=== PATIENT | male | born 1945 | race Caucasian/White ===

== ENCOUNTER 2017-03-19 03:24 | Inpatient (IN) | payer OTHER ==
[2017-03-19] VITALS (22 sets, daily range): BP systolic 84–126; BP diastolic 52–89
[~2017-03-19] VITALS: Ht 487.7 cm; Wt 160.3 kg
[2017-03-19 04:05] LABS: MEAN PLAT.VOLUME 9.5 uM^3 (9.0-12.4); PLATELET COUNT 324 K/uL (156-360)
[2017-03-19 04:11] LABS: INTER. NORMALIZED RATIO 1.2; PROTHROMBIN TIME 13.5 SEC (10.2-12.9)
[2017-03-19 04:13] LABS: HEMATOCRIT 47.6 % (38.0-50.0); MCH 30.7 PG (29.0-34.0); MCV 90.3 FL (86-99); RBC DIS.WIDTH-CV 14.6 % (11.8-14.6); RBC DIS.WIDTH-SD 48.7 % (39-53); RED BLOOD COUNT 5.27 M/uL (4.00-5.50); WHITE BLOOD COUNT 38.5 K/uL (4.1-10.2)
[2017-03-19 04:14] LABS: PTT 26.4 SEC (25-37)
[2017-03-19 04:22] LABS: CHLORIDE 96 mEq/L (99-109); POTASSIUM 3.7 mEq/L (3.7-5.4); SODIUM 138 mEq/L (136-147)
[2017-03-19 04:25] LABS: GLUCOSE 168 mg/dL (70-99)
[2017-03-19 04:26] LABS: ANION GAP 21 MEQ/L (2-14); TOTAL BILIRUBIN 0.7 mg/dL (0.0-1.0)
[2017-03-19 04:28] LABS: ALKALINE PHOSPHATASE 72 IU/L (3-129); GFR ESTIMATE (CALCULATED) 19 mL/min/
[2017-03-19 04:29] LABS: UREA NITROGEN (BUN) 32 mg/dL (9-23)
[2017-03-19 04:30] LABS: DIRECT BILIRUBIN 0.4 mg/dL (0.0-0.3)
[2017-03-19 04:32] LABS: LIPASE 2 U/L (1.0-51.0)
[2017-03-19 04:33] LABS: TROP-I INTERPRETATION NEGATIVE; TROPONIN-I 0.02 ng/mL (0.0-0.30)
[2017-03-19 04:48] LABS: ABS NEUTROPHIL COUNT 35.8; ANISOCYTOSIS 1+; BAND NEUTROPHILS 17.3 % (0-8.0); BURR CELLS 1+; EOSINOPHIL ABS CT 0; HEMATOLOGY COMMENT 1 SN; INSTRUMENT ABS NEUTROPHIL CT 33.2 K/uL; LYMPHOCYTES 1.4 % (15.0-45.0); METAMYELOCYTES 0.5 %; PLAT.SUFFICIENCY ADEQUATE; POLYCHROMASIA 1+; SEG.NEUTROPHILS 75.7 % (46.0-76.0)
[2017-03-19] MEDS ORDERED: TRIAMTERENE-HC1 EACH PO (06:53)
[2017-03-19] MEDS ORDERED: LISINOPRIL20 MG PO (06:55)
[2017-03-19] MEDS ORDERED: ALLOPURINOL300 MG PO (06:55)
[2017-03-19] MEDS ORDERED: TRAMADOL HCL E100 M1 PO (06:55)
[2017-03-19] MEDS ORDERED: CRESTOR10 MG PO (06:56)
[2017-03-19] MEDS ORDERED: ALEVE220 MG PO (06:57)
[2017-03-19] MEDS ORDERED: GLUCOSAMINE1000 MG PO (06:58)
[2017-03-19] MEDS ORDERED: ASPIR 8181 M1 PO (06:58)
[2017-03-19] MEDS ORDERED: CHONDROITIN SU250 MG PO (06:59)
[2017-03-19 07:11] LABS: C DIFF TOXIN POSITIVE (NEGATIVE); PROBE CHECK PASS
[2017-03-19] MEDS ORDERED: LEVAQUIN250 MG PO (07:30)
[2017-03-19] MEDS ORDERED: LEVAQUIN750 MG PO (07:32)
[2017-03-19 08:23] LABS: METH RESISTANT S AUREUS PCR NEGATIVE (NEGATIVE); PROBE CHECK PASS; SPECIMEN PROCESSING CONTROL PASS
[2017-03-19] MEDS ORDERED: PROVENTIL HFA6.7 GM IH (13:36)
[2017-03-19] MEDS ORDERED: LOTRIMIN AF24 GM TP (13:38)
[2017-03-20] VITALS (24 sets, daily range): BP systolic 67–115; BP diastolic 37–85
[2017-03-20 05:24] LABS: HEMATOCRIT 46.1 % (38.0-50.0); MCH 31.1 PG (29.0-34.0); MCHC 34.3 G/DL (30.0-36.0); MCV 90.7 FL (86-99); MEAN PLAT.VOLUME 9.6 uM^3 (9.0-12.4); PLATELET COUNT 331 K/uL (156-360); RBC DIS.WIDTH-CV 14.9 % (11.8-14.6); RBC DIS.WIDTH-SD 49.5 % (39-53); RED BLOOD COUNT 5.08 M/uL (4.00-5.50)
[2017-03-20 05:39] LABS: WHITE BLOOD COUNT 40.9 K/uL (4.1-10.2)
[2017-03-20 05:40] LABS: ANION GAP 13 MEQ/L (2-14); CHLORIDE 102 MEQ/L (99-109); GLUCOSE 157 mg/dL (70-99); MAGNESIUM 1.8 mg/dl (1.3-2.7); POTASSIUM 4.2 MEQ/L (3.7-5.4); SAMPLE HEMOLYSIS CHECK 0; SAMPLE ICTERIC CHECK 0; SAMPLE LIPEMIA CHECK 0; SODIUM 137 MEQ/L (136-147); UREA NITROGEN (BUN) 45 mg/dL (9-23)
[2017-03-20 05:42] LABS: GFR ESTIMATE (CALCULATED) 16 mL/min/
[2017-03-20 05:54] LABS: ABS NEUTROPHIL COUNT 36.4; ANISOCYTOSIS 1+; ATYPICAL LYMPHOCYTE 1.3 %; BAND NEUTROPHILS 4.4 % (0-8.0); BURR CELLS 3+; EOSINOPHIL ABS CT 0; INSTRUMENT ABS NEUTROPHIL CT 34.3 K/uL; LYMPHOCYTES 3.5 % (15.0-45.0); METAMYELOCYTES 1.3 %; MYELOCYTES 0.4 %; PLAT.SUFFICIENCY ADEQUATE; SEG.NEUTROPHILS 84.7 % (46.0-76.0); TOX.VACUOLIZATION 1+; TOXIC GRANULATION 3+
[2017-03-20 09:26] LABS: UR CREATININE CONCENTRATION 344.8 MG/DL
[2017-03-21] VITALS (20 sets, daily range): BP systolic 79–135; BP diastolic 40–79
[2017-03-21 05:19] LABS: MEAN PLAT.VOLUME 9.5 uM^3 (9.0-12.4); PLATELET COUNT 325 K/uL (156-360)
[2017-03-21 05:39] LABS: HEMATOCRIT 42.6 % (38.0-50.0); MCH 30.3 PG (29.0-34.0); MCHC 33.8 G/DL (30.0-36.0); MCV 89.7 FL (86-99); RBC DIS.WIDTH-CV 14.9 % (11.8-14.6); RBC DIS.WIDTH-SD 49.4 % (39-53); RED BLOOD COUNT 4.75 M/uL (4.00-5.50); WHITE BLOOD COUNT 34.3 K/uL (4.1-10.2)
[2017-03-21 05:44] LABS: ALKALINE PHOSPHATASE 66 IU/L (3-129); ANION GAP 9 MEQ/L (2-14); CHLORIDE 104 MEQ/L (99-109); GFR ESTIMATE (CALCULATED) 13 mL/min/; GLUCOSE 133 mg/dL (70-99); POTASSIUM 4.4 MEQ/L (3.7-5.4); SAMPLE HEMOLYSIS CHECK 0; SAMPLE ICTERIC CHECK 0; SAMPLE LIPEMIA CHECK 0; SODIUM 137 MEQ/L (136-147); TOTAL BILIRUBIN 0.4 MG/DL (0.0-1.0); UREA NITROGEN (BUN) 54 mg/dL (9-23)
[2017-03-21 10:58] LABS: MAGNESIUM 1.7 mg/dl (1.3-2.7)
[2017-03-22] VITALS (21 sets, daily range): BP systolic 84–140; BP diastolic 52–86
[2017-03-22 05:50] LABS: HEMATOCRIT 41.4 % (38.0-50.0); MCH 30.6 PG (29.0-34.0); MCHC 34.3 G/DL (30.0-36.0); MCV 89.2 FL (86-99); MEAN PLAT.VOLUME 9.8 uM^3 (9.0-12.4); NRBC (%) 0.1 /100 WBC (0-0); PLATELET COUNT 294 K/uL (156-360); RBC DIS.WIDTH-CV 15.3 % (11.8-14.6); RBC DIS.WIDTH-SD 50.6 % (39-53); RED BLOOD COUNT 4.64 M/uL (4.00-5.50); WHITE BLOOD COUNT 29.8 K/uL (4.1-10.2)
[2017-03-22 06:15] LABS: ALKALINE PHOSPHATASE 93 IU/L (3-129); ANION GAP 15 MEQ/L (2-14); CHLORIDE 103 MEQ/L (99-109); GLUCOSE 115 mg/dL (70-99); POTASSIUM 4.1 MEQ/L (3.7-5.4); SAMPLE HEMOLYSIS CHECK 0; SAMPLE ICTERIC CHECK 0; SAMPLE LIPEMIA CHECK 0; SODIUM 139 MEQ/L (136-147); UREA NITROGEN (BUN) 60 mg/dL (9-23)
[2017-03-22 06:17] LABS: ABS NEUTROPHIL COUNT 25.1; ANISOCYTOSIS 1+; ATYPICAL LYMPHOCYTE 1.4 %; BURR CELLS 2+; EOSINOPHIL ABS CT 0; INSTRUMENT ABS NEUTROPHIL CT 22.6 K/uL; LYMPHOCYTES 4.5 % (15.0-45.0); MACROCYTES 1+; METAMYELOCYTES 3.2 %; MYELOCYTES 1.4 %; PLAT.SUFFICIENCY ADEQUATE; POIKILOCYTOSIS 2+; SEG.NEUTROPHILS 79.1 % (46.0-76.0); SMUDGE CELLS 2.3; SPHEROCYTES 2+
[2017-03-22 06:18] LABS: GFR ESTIMATE (CALCULATED) 16 mL/min/; TOTAL BILIRUBIN 0.5 MG/DL (0.0-1.0)
[2017-03-22 06:33] LABS: ANION GAP 13 MEQ/L (2-14); CHLORIDE 102 MEQ/L (99-109); GFR ESTIMATE (CALCULATED) 17 mL/min/; GLUCOSE 111 mg/dL (70-99); POTASSIUM 4.1 MEQ/L (3.7-5.4); SAMPLE HEMOLYSIS CHECK 0; SAMPLE ICTERIC CHECK 0; SAMPLE LIPEMIA CHECK 0; SODIUM 136 MEQ/L (136-147); UREA NITROGEN (BUN) 59 mg/dL (9-23)
[2017-03-23] VITALS (19 sets, daily range): BP systolic 99–139; BP diastolic 53–82
[2017-03-23 05:53] LABS: HEMATOCRIT 42.1 % (38.0-50.0); MCH 30.2 PG (29.0-34.0); MEAN PLAT.VOLUME 9.7 uM^3 (9.0-12.4); NRBC (%) 0.2 /100 WBC (0-0); PLATELET COUNT 322 K/uL (156-360); RBC DIS.WIDTH-CV 15.5 % (11.8-14.6); RBC DIS.WIDTH-SD 50.6 % (39-53); RED BLOOD COUNT 4.73 M/uL (4.00-5.50)
[2017-03-23 05:55] LABS: WHITE BLOOD COUNT 32.7 K/uL (4.1-10.2)
[2017-03-23 06:11] LABS: ANION GAP 10 MEQ/L (2-14); CHLORIDE 102 MEQ/L (99-109); GLUCOSE 110 mg/dL (70-99); SAMPLE HEMOLYSIS CHECK 0; SAMPLE ICTERIC CHECK 0; SAMPLE LIPEMIA CHECK 0; SODIUM 134 MEQ/L (136-147); UREA NITROGEN (BUN) 57 mg/dL (9-23)
[2017-03-23 06:17] LABS: GFR ESTIMATE (CALCULATED) 24 mL/min/
[2017-03-23 06:51] LABS: ABS NEUTROPHIL COUNT 28.1; ANISOCYTOSIS 1+; ATYPICAL LYMPHOCYTE 0.4 %; BAND NEUTROPHILS 6.6 % (0-8.0); BURR CELLS 1+; EOSINOPHIL ABS CT 0.2; EOSINOPHILS 0.5 % (0-5.0); INSTRUMENT ABS NEUTROPHIL CT 25.4 K/uL; LYMPHOCYTES 3.5 % (15.0-45.0); MACROCYTES 1+; METAMYELOCYTES 1.3 %; MYELOCYTES 0.4 %; NUCLEATED RBC'S 0.4; PLAT.SUFFICIENCY ADEQUATE; POIKILOCYTOSIS 1+; SEG.NEUTROPHILS 79.4 % (46.0-76.0); SMUDGE CELLS 5.3
[2017-03-23 12:49] LABS: TYPE OF FLUID PARACENTESIS
[2017-03-23 13:38] LABS: BODY FLUID PROTEIN < 3.0 G/DL
[2017-03-23 13:40] LABS: BODY FLUID RBC'S 1000 /MM^3 (0-100); BODY FLUID WBC'S 12275 /MM^3 (0-500); WBC AREA COUNTED 0.4; WHITE CELL RAW COUNT 491
[2017-03-23 14:03] LABS: BODY FLUID EOSINOPHILS 0 % (0-25); MONONUCLEAR WBC'S 0 %; POLY RAW COUNT 100; POLYNUCLEAR WBC'S 100 % (0-25)
[2017-03-24] VITALS (14 sets, daily range): BP systolic 103–135; BP diastolic 58–82
[2017-03-24 05:00] LABS: MEAN PLAT.VOLUME 9.4 uM^3 (9.0-12.4); PLATELET COUNT 273 K/uL (156-360)
[2017-03-24 05:11] LABS: POTASSIUM 3.6 mEq/L (3.7-5.4); SODIUM 135 mEq/L (136-147)
[2017-03-24 05:13] LABS: GLUCOSE 118 mg/dL (70-99); HEMATOCRIT 39.8 % (38.0-50.0); MCH 30.9 PG (29.0-34.0); MCHC 34.9 G/DL (30.0-36.0); MCV 88.4 FL (86-99); NRBC (%) 0.2 /100 WBC (0-0); RBC DIS.WIDTH-CV 15.3 % (11.8-14.6); RBC DIS.WIDTH-SD 49.5 % (39-53)
[2017-03-24 05:14] LABS: ANION GAP 8 MEQ/L (2-14); CHLORIDE 106 mEq/L (99-109); WHITE BLOOD COUNT 30.1 K/uL (4.1-10.2)
[2017-03-24 05:16] LABS: GFR ESTIMATE (CALCULATED) 38 mL/min/
[2017-03-24 05:17] LABS: CHLORIDE 105 mEq/L (99-109); POTASSIUM 3.8 mEq/L (3.7-5.4); SODIUM 137 mEq/L (136-147); UREA NITROGEN (BUN) 51 mg/dL (9-23)
[2017-03-24 05:19] LABS: GLUCOSE 115 mg/dL (70-99)
[2017-03-24 05:20] LABS: ANION GAP 11 MEQ/L (2-14)
[2017-03-24 05:21] LABS: TOTAL BILIRUBIN 0.4 mg/dL (0.0-1.0)
[2017-03-24 05:22] LABS: ALKALINE PHOSPHATASE 79 IU/L (3-129)
[2017-03-24 05:23] LABS: GFR ESTIMATE (CALCULATED) 38 mL/min/
[2017-03-24 05:24] LABS: UREA NITROGEN (BUN) 51 mg/dL (9-23)
[2017-03-25 00:23] VITALS: BP 130/70
[2017-03-25 06:52] LABS: HEMATOCRIT 42.9 % (38.0-50.0); MCH 30.1 PG (29.0-34.0); MCHC 33.6 G/DL (30.0-36.0); MCV 89.6 FL (86-99); MEAN PLAT.VOLUME 9.8 uM^3 (9.0-12.4); NRBC (%) 0.1 /100 WBC (0-0); PLATELET COUNT 323 K/uL (156-360); RBC DIS.WIDTH-CV 15.8 % (11.8-14.6); RBC DIS.WIDTH-SD 51.7 % (39-53); RED BLOOD COUNT 4.79 M/uL (4.00-5.50); WHITE BLOOD COUNT 29.4 K/uL (4.1-10.2)
[2017-03-25 07:18] LABS: ANION GAP 10 MEQ/L (2-14); ANION GAP 11 MEQ/L (2-14); CHLORIDE 104 MEQ/L (99-109); GFR ESTIMATE (CALCULATED) 49 mL/min/; GFR ESTIMATE (CALCULATED) 53 mL/min/; GLUCOSE 116 mg/dL (70-99); GLUCOSE 122 mg/dL (70-99); POTASSIUM 3.7 MEQ/L (3.7-5.4); POTASSIUM 3.8 MEQ/L (3.7-5.4); SAMPLE HEMOLYSIS CHECK 0; SAMPLE ICTERIC CHECK 0; SAMPLE LIPEMIA CHECK 0; SODIUM 138 MEQ/L (136-147); SODIUM 140 MEQ/L (136-147); UREA NITROGEN (BUN) 41 mg/dL (9-23)
[2017-03-25 08:29] VITALS: BP 98/64
[2017-03-25 11:44] VITALS: BP 122/62
[2017-03-25 15:30] VITALS: BP 102/68
[2017-03-25 20:35] VITALS: BP 104/66
[2017-03-26 00:12] VITALS: BP 102/68
[2017-03-26 04:45] VITALS: BP 120/68
[2017-03-26 08:00] VITALS: BP 136/83
[2017-03-26 08:50] LABS: HEMATOCRIT 43.3 % (38.0-50.0); MCH 31.4 PG (29.0-34.0); MCHC 34.9 G/DL (30.0-36.0); MEAN PLAT.VOLUME 9.7 uM^3 (9.0-12.4); PLATELET COUNT 348 K/uL (156-360); RBC DIS.WIDTH-CV 16.1 % (11.8-14.6); RBC DIS.WIDTH-SD 52.3 % (39-53); RED BLOOD COUNT 4.81 M/uL (4.00-5.50); WHITE BLOOD COUNT 28.8 K/uL (4.1-10.2)
[2017-03-26 11:46] VITALS: BP 145/62
[2017-03-26 12:00] LABS: CREATININE 3.5 mg/dL (0.6-1.3); POTASSIUM 3.7 mEq/L (3.7-5.4)
[2017-03-26 12:57] LABS: INTER. NORMALIZED RATIO 1.1; PROTHROMBIN TIME 12.4 SEC (10.2-12.9)
[2017-03-26 13:00] LABS: PTT 25.8 SEC (25-37)
[2017-03-26 13:20] LABS: ANION GAP 7 MEQ/L (2-14); CHLORIDE 103 MEQ/L (99-109); GFR ESTIMATE (CALCULATED) 58 mL/min/; GLUCOSE 113 mg/dL (70-99); SAMPLE HEMOLYSIS CHECK 0; SAMPLE ICTERIC CHECK 0; SAMPLE LIPEMIA CHECK 0; SODIUM 139 MEQ/L (136-147); UREA NITROGEN (BUN) 36 mg/dL (9-23)
[2017-03-26 13:26] LABS: POTASSIUM 4.8 MEQ/L (3.7-5.4)
[2017-03-26 16:00] VITALS: BP 148/82
[2017-03-26 20:10] VITALS: BP 119/70
[2017-03-27 00:16] VITALS: BP 133/61
[2017-03-27 07:45] LABS: MEAN PLAT.VOLUME 9.4 uM^3 (9.0-12.4); PLATELET COUNT 386 K/uL (156-360)
[2017-03-27 07:50] LABS: HEMATOCRIT 45.9 % (38.0-50.0); MCH 29.9 PG (29.0-34.0); MCHC 33.6 G/DL (30.0-36.0); MCV 89.1 FL (86-99); RBC DIS.WIDTH-CV 15.9 % (11.8-14.6); RBC DIS.WIDTH-SD 51.8 % (39-53); RED BLOOD COUNT 5.15 M/uL (4.00-5.50)
[2017-03-27 07:54] LABS: ANION GAP 12 MEQ/L (2-14); CHLORIDE 102 MEQ/L (99-109); GFR ESTIMATE (CALCULATED) 53 mL/min/; GLUCOSE 119 mg/dL (70-99); POTASSIUM 4.7 MEQ/L (3.7-5.4); SAMPLE HEMOLYSIS CHECK 0; SAMPLE ICTERIC CHECK 0; SAMPLE LIPEMIA CHECK 0; SODIUM 138 MEQ/L (136-147); UREA NITROGEN (BUN) 36 mg/dL (9-23)
[2017-03-27 08:09] LABS: WHITE BLOOD COUNT 31.9 K/uL (4.1-10.2)
[2017-03-27 08:19] VITALS: BP 118/72
[2017-03-27 11:51] VITALS: BP 121/71
[2017-03-27 16:48] VITALS: BP 128/72
[2017-03-27 20:16] VITALS: BP 121/59
[2017-03-28 00:02] VITALS: BP 107/67
[2017-03-28 08:36] LABS: BASOPHIL COUNT 0.1 K/uL (0-0.1); EOSINOPHIL (%) 0.2 % (0-5); EOSINOPHIL COUNT 0.1 K/uL (0-0.3); HEMATOCRIT 46.2 % (38.0-50.0); IMMATURE GRANULOCYTE (%) 2.7 % (0.0-0.7); IMMATURE GRANULOCYTE COUNT 0.6 K/uL; INSTRUMENT ABS NEUTROPHIL CT 17.7 K/uL; LYMPHOCYTE COUNT 1.7 K/uL (1.0-2.8); MCH 29.8 PG (29.0-34.0); MCHC 33.1 G/DL (30.0-36.0); MCV 90.1 FL (86-99); MEAN PLAT.VOLUME 9.1 uM^3 (9.0-12.4); MONOCYTE (%) 6.1 % (3-12); MONOCYTE COUNT 1.3 K/uL (0-0.8); NEUTROPHIL (%) 82.3 % (45-76); NEUTROPHIL COUNT 17.7 K/uL (1.8-6.4); PLATELET COUNT 368 K/uL (156-360); RBC DIS.WIDTH-CV 16.1 % (11.8-14.6); RBC DIS.WIDTH-SD 52.2 % (39-53); RED BLOOD COUNT 5.13 M/uL (4.00-5.50); WHITE BLOOD COUNT 21.5 K/uL (4.1-10.2)
[2017-03-28 08:54] VITALS: BP 122/70
[2017-03-28 09:08] LABS: ANION GAP 8 MEQ/L (2-14); CHLORIDE 101 MEQ/L (99-109); GFR ESTIMATE (CALCULATED) 53 mL/min/; GLUCOSE 122 mg/dL (70-99); POTASSIUM 4.6 MEQ/L (3.7-5.4); SAMPLE HEMOLYSIS CHECK 0; SAMPLE ICTERIC CHECK 0; SAMPLE LIPEMIA CHECK 0; SODIUM 137 MEQ/L (136-147); UREA NITROGEN (BUN) 32 mg/dL (9-23)
[2017-03-28 16:50] VITALS: BP 118/80
[2017-03-28 19:59] VITALS: BP 120/78
[2017-03-29 00:04] VITALS: BP 131/61
[2017-03-29 07:06] LABS: HEMATOCRIT 46.6 % (38.0-50.0); MCH 31.3 PG (29.0-34.0); MCHC 34.5 G/DL (30.0-36.0); MCV 90.7 FL (86-99); MEAN PLAT.VOLUME 9.5 uM^3 (9.0-12.4); PLATELET COUNT 372 K/uL (156-360); RBC DIS.WIDTH-CV 16.3 % (11.8-14.6); RBC DIS.WIDTH-SD 53.5 % (39-53); RED BLOOD COUNT 5.14 M/uL (4.00-5.50); WHITE BLOOD COUNT 19.6 K/uL (4.1-10.2)
[2017-03-29 07:30] LABS: ANION GAP 10 MEQ/L (2-14); CHLORIDE 103 MEQ/L (99-109); GFR ESTIMATE (CALCULATED) 53 mL/min/; GLUCOSE 128 mg/dL (70-99); POTASSIUM 5.4 MEQ/L (3.7-5.4); SAMPLE HEMOLYSIS CHECK 2; SAMPLE ICTERIC CHECK 0; SAMPLE LIPEMIA CHECK 0; SODIUM 136 MEQ/L (136-147); UREA NITROGEN (BUN) 32 mg/dL (9-23)
[2017-03-29 08:38] VITALS: BP 123/63
[2017-03-29 12:30] VITALS: BP 128/66
[2017-03-29 15:55] VITALS: BP 142/53
[2017-03-29 19:26] VITALS: BP 132/65
[2017-03-29 23:31] VITALS: BP 122/58
[2017-03-30 03:43] VITALS: BP 117/54
[2017-03-30 07:26] LABS: HEMATOCRIT 42.4 % (38.0-50.0); MCH 30.8 PG (29.0-34.0); MCHC 34.2 G/DL (30.0-36.0); MEAN PLAT.VOLUME 9.5 uM^3 (9.0-12.4); PLATELET COUNT 378 K/uL (156-360); RBC DIS.WIDTH-CV 16.2 % (11.8-14.6); RBC DIS.WIDTH-SD 52.9 % (39-53); RED BLOOD COUNT 4.71 M/uL (4.00-5.50); WHITE BLOOD COUNT 13.4 K/uL (4.1-10.2)
[2017-03-30 07:35] LABS: ANION GAP 9 MEQ/L (2-14); CHLORIDE 106 MEQ/L (99-109); GFR ESTIMATE (CALCULATED) 53 mL/min/; GLUCOSE 103 mg/dL (70-99); POTASSIUM 4.4 MEQ/L (3.7-5.4); SAMPLE HEMOLYSIS CHECK 0; SAMPLE ICTERIC CHECK 0; SAMPLE LIPEMIA CHECK 0; SODIUM 139 MEQ/L (136-147); UREA NITROGEN (BUN) 33 mg/dL (9-23)
[2017-03-30 08:28] VITALS: BP 114/78
[2017-03-30 11:49] VITALS: BP 122/60
[2017-03-30 16:50] VITALS: BP 119/70
[2017-03-30 19:26] VITALS: BP 115/56
[2017-03-30 23:52] VITALS: BP 119/74
[2017-03-31 03:02] VITALS: BP 110/57
[2017-03-31 08:01] VITALS: BP 108/56
[2017-03-31 09:59] LABS: HEMATOCRIT 43.7 % (38.0-50.0); MCH 30.4 PG (29.0-34.0); MCHC 33.4 G/DL (30.0-36.0); MEAN PLAT.VOLUME 8.8 uM^3 (9.0-12.4); PLATELET COUNT 403 K/uL (156-360); RBC DIS.WIDTH-CV 16.1 % (11.8-14.6); RBC DIS.WIDTH-SD 53.4 % (39-53); WHITE BLOOD COUNT 10.9 K/uL (4.1-10.2)
[2017-03-31 10:23] LABS: ANION GAP 8 MEQ/L (2-14); CHLORIDE 107 MEQ/L (99-109); GFR ESTIMATE (CALCULATED) 58 mL/min/; GLUCOSE 130 mg/dL (70-99); MAGNESIUM 1.9 mg/dl (1.3-2.7); POTASSIUM 4.7 MEQ/L (3.7-5.4); SAMPLE HEMOLYSIS CHECK 0; SAMPLE ICTERIC CHECK 0; SAMPLE LIPEMIA CHECK 0; SODIUM 139 MEQ/L (136-147); UREA NITROGEN (BUN) 29 mg/dL (9-23)
[2017-03-31 11:56] VITALS: BP 112/60
[2017-03-31 16:13] VITALS: BP 114/60
[2017-03-31 19:35] VITALS: BP 116/57
[2017-03-31 23:21] VITALS: BP 113/53
[2017-04-01 04:15] VITALS: BP 123/58
[2017-04-01 07:23] LABS: ANION GAP 6 MEQ/L (2-14); CHLORIDE 106 MEQ/L (99-109); GFR ESTIMATE (CALCULATED) > 59 mL/min/; GLUCOSE 108 mg/dL (70-99); SAMPLE HEMOLYSIS CHECK 0; SAMPLE ICTERIC CHECK 0; SAMPLE LIPEMIA CHECK 0; SODIUM 137 MEQ/L (136-147); UREA NITROGEN (BUN) 25 mg/dL (9-23)
[2017-04-01 09:57] VITALS: BP 102/49
[2017-04-01 11:36] VITALS: BP 115/60
[2017-04-01 19:29] VITALS: BP 106/57
[2017-04-01 23:24] VITALS: BP 118/60
[2017-04-02 04:31] VITALS: BP 122/64
[2017-04-02 06:38] LABS: EOSINOPHIL (%) 0.2 % (0-5); HEMATOCRIT 43.4 % (38.0-50.0); IMMATURE GRANULOCYTE (%) 0.6 % (0.0-0.7); IMMATURE GRANULOCYTE COUNT 0.1 K/uL; LYMPHOCYTE COUNT 1.3 K/uL (1.0-2.8); MCH 31.2 PG (29.0-34.0); MCHC 34.1 G/DL (30.0-36.0); MCV 91.4 FL (86-99); MEAN PLAT.VOLUME 8.9 uM^3 (9.0-12.4); MONOCYTE (%) 10.3 % (3-12); MONOCYTE COUNT 0.9 K/uL (0-0.8); NEUTROPHIL (%) 72.2 % (45-76); PLATELET COUNT 394 K/uL (156-360); RBC DIS.WIDTH-CV 16.5 % (11.8-14.6); RBC DIS.WIDTH-SD 54.5 % (39-53); RED BLOOD COUNT 4.75 M/uL (4.00-5.50); WHITE BLOOD COUNT 8.3 K/uL (4.1-10.2)
[2017-04-02 07:01] LABS: ANION GAP 9 MEQ/L (2-14); CHLORIDE 108 MEQ/L (99-109); GFR ESTIMATE (CALCULATED) > 59 mL/min/; GLUCOSE 103 mg/dL (70-99); POTASSIUM 4.4 MEQ/L (3.7-5.4); SAMPLE HEMOLYSIS CHECK 0; SAMPLE ICTERIC CHECK 0; SAMPLE LIPEMIA CHECK 0; SODIUM 141 MEQ/L (136-147); UREA NITROGEN (BUN) 24 mg/dL (9-23)
[2017-04-02 08:25] VITALS: BP 100/69
[2017-04-02 11:16] VITALS: BP 110/64
[2017-04-02 15:27] VITALS: BP 122/56
[2017-04-02 23:07] VITALS: BP 106/50
[2017-04-03 06:41] LABS: BASOPHIL COUNT 0.1 K/uL (0-0.1); EOSINOPHIL (%) 0.4 % (0-5); HEMATOCRIT 43.1 % (38.0-50.0); IMMATURE GRANULOCYTE (%) 0.4 % (0.0-0.7); INSTRUMENT ABS NEUTROPHIL CT 4.5 K/uL; LYMPHOCYTE COUNT 1.5 K/uL (1.0-2.8); MCH 30.7 PG (29.0-34.0); MCHC 33.6 G/DL (30.0-36.0); MCV 91.3 FL (86-99); MEAN PLAT.VOLUME 8.9 uM^3 (9.0-12.4); MONOCYTE (%) 11.4 % (3-12); MONOCYTE COUNT 0.8 K/uL (0-0.8); NEUTROPHIL (%) 65.8 % (45-76); NEUTROPHIL COUNT 4.5 K/uL (1.8-6.4); PLATELET COUNT 384 K/uL (156-360); RBC DIS.WIDTH-CV 16.6 % (11.8-14.6); RBC DIS.WIDTH-SD 55.2 % (39-53); RED BLOOD COUNT 4.72 M/uL (4.00-5.50); WHITE BLOOD COUNT 6.9 K/uL (4.1-10.2)
[2017-04-03 07:22] LABS: ANION GAP 9 MEQ/L (2-14); CHLORIDE 108 MEQ/L (99-109); GFR ESTIMATE (CALCULATED) > 59 mL/min/; GLUCOSE 96 mg/dL (70-99); POTASSIUM 4.3 MEQ/L (3.7-5.4); SAMPLE HEMOLYSIS CHECK 0; SAMPLE ICTERIC CHECK 0; SAMPLE LIPEMIA CHECK 0; SODIUM 140 MEQ/L (136-147); UREA NITROGEN (BUN) 20 mg/dL (9-23)
[2017-04-03 08:21] VITALS: BP 121/59
[2017-04-03 11:46] VITALS: BP 105/55
[2017-04-03 16:59] VITALS: BP 112/59
[2017-04-03 18:52] LABS: MAGNESIUM 1.7 mg/dl (1.3-2.7); POTASSIUM 4.1 MEQ/L (3.7-5.4)
[2017-04-03 20:25] VITALS: BP 112/80
[2017-04-03 23:19] VITALS: BP 118/64
[2017-04-04 04:12] VITALS: BP 124/75
[2017-04-04 07:30] VITALS: BP 109/59
[2017-04-04 07:47] VITALS: BP 131/59
[2017-04-04 16:23] VITALS: BP 109/54
[2017-04-04 19:45] VITALS: BP 112/58
[2017-04-05 03:25] VITALS: BP 109/55
[2017-04-05 08:30] VITALS: BP 122/86
[2017-04-05 12:06] VITALS: BP 136/72
[2017-04-05 15:52] VITALS: BP 104/62
[2017-04-05 22:37] VITALS: BP 110/60
[2017-04-06 03:31] VITALS: BP 112/56
[2017-04-06 06:14] LABS: MCHC 33.3 G/DL (30.0-36.0); MCV 92.9 FL (86-99); MEAN PLAT.VOLUME 8.9 uM^3 (9.0-12.4); PLATELET COUNT 272 K/uL (156-360); RBC DIS.WIDTH-CV 16.7 % (11.8-14.6); RBC DIS.WIDTH-SD 56.1 % (39-53); RED BLOOD COUNT 4.52 M/uL (4.00-5.50); WHITE BLOOD COUNT 6.7 K/uL (4.1-10.2)
[2017-04-06 06:48] LABS: ANION GAP 8 MEQ/L (2-14); CHLORIDE 110 MEQ/L (99-109); GFR ESTIMATE (CALCULATED) > 59 mL/min/; GLUCOSE 94 mg/dL (70-99); POTASSIUM 3.8 MEQ/L (3.7-5.4); SAMPLE HEMOLYSIS CHECK 0; SAMPLE ICTERIC CHECK 0; SAMPLE LIPEMIA CHECK 0; SODIUM 143 MEQ/L (136-147); UREA NITROGEN (BUN) 15 mg/dL (9-23)
[2017-04-06 08:31] VITALS: BP 120/62
[2017-04-06 08:40] LABS: MAGNESIUM 1.8 mg/dl (1.3-2.7)
[2017-04-06 12:19] VITALS: BP 160/90
[2017-04-06 16:30] VITALS: BP 144/70
[2017-04-06 19:36] VITALS: BP 122/69
[2017-04-07 04:33] VITALS: BP 108/57
[2017-04-07 08:30] VITALS: BP 110/66
[2017-04-07] MEDS ORDERED: DIFICID200 MG PO (11:37)
[2017-04-07] MEDS ORDERED: VANCOCIN 250 M250 MG PO (11:43)
[2017-04-07] MEDS ORDERED: METOPROLOL SUCC50 MG PO (11:45)
[2017-04-07] MEDS ORDERED: BUMETANIDE1 MG PO (11:50)
[2017-04-07] MEDS ORDERED: FAMOTIDINE20 MG PO (11:50)
[2017-04-07] MEDS ORDERED: METOPROLOL TART25 MG PO (11:57)
[2017-04-07 12:08] VITALS: BP 130/72
[2017-04-07 15:01] LABS: ANION GAP 8 MEQ/L (2-14); CHLORIDE 108 MEQ/L (99-109); GFR ESTIMATE (CALCULATED) > 59 mL/min/; GLUCOSE 101 mg/dL (70-99); MAGNESIUM 1.7 mg/dl (1.3-2.7); SAMPLE HEMOLYSIS CHECK 0; SAMPLE ICTERIC CHECK 0; SAMPLE LIPEMIA CHECK 0; SODIUM 142 MEQ/L (136-147); UREA NITROGEN (BUN) 14 mg/dL (9-23)
[2017-04-07 16:30] VITALS: BP 136/70
[2017-04-08 10:51] LABS: RESEND RESULTS RESEND RESULTS
[2017-04-14 13:56] LABS: RESEND RESULTS RESEND RESULTS
== END 2017-04-07 19:14 | disposition home or self-care (01) | DRG 371 ==
LOC: EME 03:24 → 4WEST 05:22 → EDOF 05:22 → ENRESERV 05:25 → 4WEST 06:22 → ENRESERV 03-24 11:45 → 3EAST 03-24 17:56
PROVIDERS: Emergency Medicine; Hospitalist; Internal Medicine; Internal Medicine Critical Care Medicine; Internal Medicine Gastroenterology; Internal Medicine Nephrology; Nurse Practitioner Adult Health; Physician Assistant; Specialist
PROC: 0W9G3ZZ Drainage of Peritoneal Cavity, Percutaneous Approach (ICD-10-PCS; principal; 2017-03-25)
DX: A04.72 Enterocolitis due to Clostridium difficile, not specified as recurrent (principal); E78.5 Hyperlipidemia, unspecified; N17.0 Acute kidney failure with tubular necrosis; I89.0 Lymphedema, not elsewhere classified; I10 Essential (primary) hypertension; A41.4 Sepsis due to anaerobes; R65.21 Severe sepsis with septic shock; E87.6 Hypokalemia; E88.09 Other disorders of plasma-protein metabolism, not elsewhere classified; E83.51 Hypocalcemia; E87.70 Fluid overload, unspecified; L97.919 Non-pressure chronic ulcer of unspecified part of right lower leg with unspecified severity; E66.01 Morbid (severe) obesity due to excess calories; R18.8 Other ascites; E86.0 Dehydration; E87.2 Acidosis; J45.909 Unspecified asthma, uncomplicated; I87.2 Venous insufficiency (chronic) (peripheral); K57.90 Diverticulosis of intestine, part unspecified, without perforation or abscess without bleeding; I49.3 Ventricular premature depolarization; N50.89 Other specified disorders of the male genital organs; E86.1 Hypovolemia; M10.9 Gout, unspecified; Z87.891 Personal history of nicotine dependence; Z88.6 Allergy status to analgesic agent; I25.2 Old myocardial infarction; Z88.8 Allergy status to other drugs, medicaments and biological substances; Z68.43 Body mass index [BMI] 50.0-59.9, adult; Z82.3 Family history of stroke
CPT/HCPCS: 29581 RT; 49083; 71010; 74176; 76705; 80047; 80048; 80048 91; 80053; 80069; 80076; 82330; 82570; 83605; 83690; 83735; 84100; 84132 91; 84157; 84300; 84484; 85007; 85025; 85027; 85610; 85730; 87040; 87070; 87075; 87205; 87493; 87641; 88108; 88305; 89051; 93005; 93306; 94799; 97530 GO; 97530 GP; 97597; 97598; 99281; 99285; A6212; C1753; J1644; J1940; J2405; J2543; J3475; J7030; J7050; J7120; P9047; Q0177; S0030

== ENCOUNTER 2017-04-16 09:27 | Emergency (ER) | payer OTHER ==
[~2017-04-16] VITALS: Ht 170.2 cm; Wt 150.1 kg
[~2017-04-16 09:27] MED LIST: ALEVE220 MG PO; ALLOPURINOL300 MG PO; ASPIR 8181 M1 PO; BUMETANIDE1 MG PO; CHONDROITIN SU250 MG PO; CRESTOR10 MG PO; DIFICID200 MG PO; FAMOTIDINE20 MG PO; GLUCOSAMINE1000 MG PO; LEVAQUIN250 MG PO; LEVAQUIN750 MG PO; LISINOPRIL20 MG PO; LOTRIMIN AF24 GM TP; METOPROLOL SUCC50 MG PO; METOPROLOL TART25 MG PO; PROVENTIL HFA6.7 GM IH; TRAMADOL HCL E100 M1 PO; TRIAMTERENE-HC1 EACH PO; VANCOCIN 250 M250 MG PO
[2017-04-16 10:24] LABS: HEMATOCRIT 40.9 % (38.0-50.0); MCH 30.6 PG (29.0-34.0); MCHC 33.3 G/DL (30.0-36.0); MCV 91.9 FL (86-99); PLATELET COUNT 237 K/uL (156-360); RBC DIS.WIDTH-CV 15.9 % (11.8-14.6); RBC DIS.WIDTH-SD 53.1 % (39-53); RED BLOOD COUNT 4.45 M/uL (4.00-5.50); WHITE BLOOD COUNT 10.5 K/uL (4.1-10.2)
[2017-04-16 10:33] LABS: CHLORIDE 99 mEq/L (99-109); POTASSIUM 4.1 mEq/L (3.7-5.4); SODIUM 139 mEq/L (136-147)
[2017-04-16 10:35] LABS: GLUCOSE 109 mg/dL (70-99)
[2017-04-16 10:37] LABS: ANION GAP 6 MEQ/L (2-14); TOTAL BILIRUBIN 0.5 mg/dL (0.0-1.0)
[2017-04-16 10:39] LABS: ALKALINE PHOSPHATASE 76 IU/L (3-129); GFR ESTIMATE (CALCULATED) 58 mL/min/
[2017-04-16 10:40] LABS: UREA NITROGEN (BUN) 15 mg/dL (9-23)
[2017-04-16 12:28] LABS: ADD MIUA? NO; BILIRUBIN NEGATIVE; BLOOD NEGATIVE; COLOR YELLOW ((YELLOW)); GLUCOSE (STRIP) NEGATIVE; KETONES NEGATIVE; LEUKOCYTES NEGATIVE; NITRITE NEGATIVE; PROTEIN (STRIP) NEGATIVE; UCUL ADDED? NO; UROBILINOGEN 0.2 MG/DL (0.2-1.0)
[2017-04-16] MEDS ORDERED: BACTRIM,SEPT1 TABLET PO (13:32)
[2017-04-16] MEDS ORDERED: FLAGYL500 MG PO (13:32)
[2017-04-16 13:54] VITALS: BP 122/61
== END 2017-04-16 13:56 | disposition home or self-care (01) ==
LOC: EME 09:27
DX: K57.92 Diverticulitis of intestine, part unspecified, without perforation or abscess without bleeding (principal); Z86.19 Personal history of other infectious and parasitic diseases; J44.9 Chronic obstructive pulmonary disease, unspecified; I10 Essential (primary) hypertension; M10.9 Gout, unspecified; Z79.82 Long term (current) use of aspirin; Z88.8 Allergy status to other drugs, medicaments and biological substances; Z87.891 Personal history of nicotine dependence
CPT/HCPCS: 74176; 80053; 81003; 85027; 99281; 99284